=== PATIENT | female | born 1990 | race Caucasian/White ===

== ENCOUNTER 2022-03-11 12:28 | Emergency (ER) | payer OTHER, SELFPAY ==
[2022-03-11 13:08] VITALS: BP 122/80; PULSE 93; RESP 20; TEMP 37; O2SAT 100
--- NOTE | 2022-03-11 15:06 | ED.SKABFB ---
HPI - Skin/Abscess/Foreign Bdy General Chief complaint: Skin/Abscess/Foreign Body Stated complaint: Skin Problem Time Seen by Provider: 03/11/22 15:00 Source: patient Mode of arrival: ambulatory Limitations: no limitations History of Present Illness HPI narrative: 32-year-old female presents with complaints of rash that is all over for the past 2 days which is itchy. Patient has used Calamine lotion to rash with no improvement. Patient has red raised diffuse rash which is scattered over body circular in appearance and is itchy. Patient denies any new soap, foods,medications, or body products, no known allergens, No one else in household has similar rash. Patient denies any difficulty with swallowing or any problems breathing with SAO2 100% on room air. MD complaint: rash Onset (ago): day(s) (2) Treatments prior to arrival: other (Calamine) Related Data Allergies Allergy/AdvReac Type Severity Reaction Status Date / Time No Known Allergies Allergy Unverified 08/16/18 20:29 Review of Systems Review of Systems: CONSTITUTIONAL: Denies fever, chills, or sweats. CARDIOVASCULAR: Denies chest pain, palpitations, or edema. RESPIRATORY: Denies cough or dyspnea. SKIN: Reports diffuse red raised scattered rash that is itchy MUSCULOSKELETAL: Denies joint pain or myalgia. NEUROLOGIC: Denies headache, numbness, or weakness. All systems reviewed & are unremarkable except as noted in HPI and below PMFSH Past Medical History Medical History (Updated 03/18/22 @ 07:48 by Nimisha Archuleta NP) Anxiety and depression Bipolar 1 disorder Social History Social History (Updated 03/18/22 @ 07:48 by Nimisha Archuleta NP) Smoking status: Never smoker Alcohol intake: unknown Substance use type: does not use Living arrangements: with family Gender identity (if verbalized by the patient): Female Comments At time of signature, agree with nursing past medical, surgical, social and family history. There is no relevant family history pertinent to the presenting complaint Exam Narrative: GENERAL: Well-appearing, well-nourished, and in no acute distress. HEAD: Normocephalic, atraumatic. EYES: PERRLA, conjunctivae clear, and EOMI. ENT: Mucous membranes moist. Oropharynx without edema, erythema or lesions. NECK: Supple. No lymphadenopathy CHEST: Clear to auscultation. No respiratory distress. HEART: Regular rate and rhythm. SKIN: Warm, dry.? Scattered red raised diffuse rash over body circular in appearance that is itchy NEURO:? Alert and oriented x3. PSYCH: Normal mood and affect Course Course Emergency Course: Patient is aware of diagnosis, understands and agrees to treatment plan.? Anticipatory guidance given.? Patient agrees to follow-up as directed and is aware of reasons to seek care at the emergency department. Portions of this record may have been created with voice recognition software Level of Care: Express Care Visit Vital Signs Vital signs: Vital Signs Temperature 37.0 C 03/11/22 13:08 Pulse Rate 93 03/11/22 13:08 Respiratory Rate 20 03/11/22 13:08 Blood Pressure 122/80 03/11/22 13:08 Pulse Oximetry 100 03/11/22 13:08 Oxygen Delivery Room Air 03/11/22 13:08 Temperature 37.0 C 03/11/22 13:08 Pulse Rate 93 03/11/22 13:08 Respiratory Rate 20 03/11/22 13:08 Blood Pressure 122/80 03/11/22 13:08 Pulse Oximetry 100 03/11/22 13:08 Oxygen Delivery Room Air 03/11/22 13:08 Reviewed MDM - Skin/Abscess/Foreign Bdy MDM Narrative Medical decision making narrative: Does not appear at this time to be erythema multiforme, bullous, SJS, TEN; no evidence at this time to suggest RMSF, endocarditis or Lyme disease; patient looks well, nontoxic and is tolerating oral intake; no neurologic signs or symptoms; no headache, photophobia or neck pain; afebrile; appropriate for initial outpatient treatment; discussed the importance of follow-up, patient agrees; question, viral e
[2022-03-11] MEDS: methylPREDNISolone ACETATE 80 MG/ML VIAL IM (15:33)
== END 2022-03-11 16:00 | disposition home or self-care (01) ==
PROVIDERS: Emergency Provider Registered Nurse
DX: L25.9 Unspecified contact dermatitis, unspecified cause (principal)
CPT/HCPCS: 96372; 99203; G0463; J1040